=== PATIENT | female | born 1975 | race Caucasian/White ===

== ENCOUNTER 2018-05-21 15:02 | Emergency (ER) | payer BC ==
[~2018-05-21] VITALS: Ht 152.4 cm; Wt 59.0 kg
[2018-05-21 15:12] VITALS: BP 116/65; Ht 152.4 cm; Wt 59.0 kg
== END 2018-05-21 16:42 | disposition home or self-care (01) ==
LOC: ED 15:02
DX: F41.9 Anxiety disorder, unspecified (principal); M79.1 Myalgia; Z90.710 Acquired absence of both cervix and uterus; Z88.8 Allergy status to other drugs, medicaments and biological substances